=== PATIENT | female | born 1990 | race Two or more races ===

== ENCOUNTER 2021-04-24 07:27 | Emergency (ER) | payer SELFPAY ==
[~2021-04-24] VITALS: Ht 167.6 cm; Wt 90.7 kg
--- NOTE | 2021-04-24 07:27 | NUR ---
BIBS C/O FEVER, VOMITING, AND HEADACHE STARTED AT 3AM, AFEBRILE UPON ARRIVALS. VITALS ARE WITHIN NORMAL LIMITS. BREATHING IS EVEN AND UNLABORED.
[2021-04-24] MEDS ORDERED: IV NS 0.9% 1,000 ML BAG IV ONE (08:00)
--- NOTE | 2021-04-24 08:18 | NUR ---
URINE COLLECTED AND SENT TO LAB
--- NOTE | 2021-04-24 08:27 | NUR ---
SHY ATIGEN AND PCR COLLECTED AND SENT
--- NOTE | 2021-04-24 08:30 | NUR ---
X RAY AT BEDSIDE
[2021-04-24 08:43] LABS: BASOPHILS % (AUTO) 0.4 % (0.0-2.0); EOSINOPHILS % (AUTO) 0.2 % (0.0-6.0); HEMATOCRIT 37 % (33-45); HEMOGLOBIN 12.4 g/dL (11.5-14.8); LYMPHOCYTES # (AUTO) 0.3 K/uL (0.8-4.8); LYMPHOCYTES % (AUTO) 3.9 % (20.0-44.0); MEAN CORPUSCULAR HGB CONC 34 g/dl (31.0-36.0); MEAN CORPUSCULAR VOLUME 85 fL (82-100); MONOCYTES # (AUTO) 0.6 K/uL (0.1-1.30); MONOCYTES % (AUTO) 8.4 % (2.0-12.0); NEUTROPHILS # (AUTO) 6.5 K/uL (1.8-8.9); NEUTROPHILS % (AUTO) 87.1 % (43.0-81.0); PLATELET COUNT (AUTO) 229 K/uL (150-450); RED BLOOD CELL COUNT(AUTO) 4.31 MIL/uL (4.0-5.2); WHITE BLOOD COUNT (AUTO) 7.5 K/uL (4.3-11.0)
[2021-04-24] MEDS ORDERED: ONDANSETRON HCL/PF 4 MG/2 ML VIAL IV ONE (09:30)
[2021-04-24 09:33] LABS: BILIRUBIN,DIRECT 0.1 mg/dL (0.0-0.2); BILIRUBIN,TOTAL 0.2 mg/dL (0.2-1.0); CALCIUM, SERUM 9.1 mg/dL (8.5-10.1); CREATININE 0.9 mg/dL (0.6-1.3); POTASSIUM 3.9 mmol/L (3.5-5.1); TOTAL PROTEIN, SERUM 8.4 g/dL (6.4-8.2)
[2021-04-24] MEDS ORDERED: ONDANSETRON HCL/PF 4 MG/2 ML VIAL ONE (10:02)
[2021-04-24 10:30] LABS: BILIRUBIN,URINE NEGATIVE (NEGATIVE); LEUKOCYTE ESTERASE ,URINE NEGATIVE (NEGATIVE); NITRITE, URINE NEGATIVE (NEGATIVE); PROTEIN,URINE NEGATIVE (NEGATIVE); UGLUCOSE NEGATIVE (NEGATIVE); UROBILINOGEN,URINE 0.2 EU/dL (0.2)
[2021-04-24 10:34] LABS: COLOR,URINE STRAW (YELLOW)
[2021-04-24 11:25] LABS: RBC,URINE NONE SEEN /HPF (0-2); WBC,URINE NONE SEEN /HPF (0-3)
[2021-04-24 11:26] LABS: BACTERIA,URINE None seen /HPF (None Seen); SQUAMOUS EPITHELIAL CELL,UR Rare /HPF (None Seen)
[2021-04-24] MEDS ORDERED: ACET-2605 PO (12:05)
[2021-04-24] MEDS ORDERED: ONDA4TAB5 PO (12:35)
--- NOTE | 2021-04-24 12:40 | NUR ---
Patient discharged to home in stable condition. Written and verbal after care instructions given. Patient verbalizes understanding of instruction. PT ambulatory with a steady gait
[2021-04-24 12:59] VITALS: BP 135/76
== END 2021-04-24 13:00 | disposition home or self-care (01) ==
LOC: ER 07:31
DX: U07.1 COVID-19 (principal); R11.2 Nausea with vomiting, unspecified; R00.0 Tachycardia, unspecified; R03.0 Elevated blood-pressure reading, without diagnosis of hypertension
CPT/HCPCS: 36415; 71045; 80048; 80076; 81001; 83605; 84145; 85025; 87040 ×2; 87086; 87426; 93005; 96361; 96374; 99285; C9803 ×2; J2405; J7030; U0003

== ENCOUNTER 2024-04-09 20:03 | Emergency (ER) | payer SELFPAY ==
[~2024-04-09 20:03] MED LIST: ACET-2605 PO; ONDA4TAB5 PO
== END 2024-04-09 22:02 | disposition left against medical advice (07) ==
LOC: ER 20:05
DX: Z53.21 Procedure and treatment not carried out due to patient leaving prior to being seen by health care provider (principal)